=== PATIENT | male | born 1950 | race Two or more races ===

== ENCOUNTER 2016-10-11 06:29 | Inpatient (IN) | payer OTHER ==
[~2016-10-11] VITALS: Ht 188 cm; Wt 92.0 kg
[2016-10-11] MEDS ORDERED: SODIUM CHLORIDE 0.9% 1,000 ML IV ONE (06:52)
[2016-10-11] MEDS ORDERED: FAMOTIDINE 20 MG/2 ML ONE (06:59)
[2016-10-11] MEDS ORDERED: MORPHINE SULFATE 4 MG/ML, 1ML ONE (06:59)
[2016-10-11] MEDS ORDERED: ONDANSETRON 2MG/ML, 2ML ONE ×2 (06:59→16:30)
[2016-10-11] MEDS ORDERED: ONDANSETRON 2MG/ML, 2ML IVPush ONE (07:00)
[2016-10-11] MEDS ORDERED: SODIUM CHLORIDE 0.9% 1,000ML IVBOLUS ONE (07:00)
[2016-10-11] MEDS ORDERED: MORPHINE SULFATE 4 MG/ML, 1ML IVPush PRN (07:00)
[2016-10-11] MEDS ORDERED: FAMOTIDINE 20 MG/2 ML IVP ONE (07:00)
[2016-10-11 07:16] LABS: HEMATOCRIT 45.8 % (39.2-51.8); HEMOGLOBIN 15.4 g/dL (13.7-18.0); WHITE BLOOD COUNT 7.9 x10^3/uL (3.4-10)
[2016-10-11 07:30] LABS: ASPARTATE AMINO TRANSFERASE 132 U/L (15-37); BLOOD UREA NITROGEN 22 mg/dL (7-18)
[2016-10-11 07:35] LABS: IS PT STATUS REG ER OR PRE ER? YES
[2016-10-11] MEDS ORDERED: CEFOTETAN PMX 1GM/50ML 50 ML ONE (08:50)
[2016-10-11] MEDS ORDERED: CEFOTETAN PMX 1GM/50ML 50 ML IV ONE (09:00)
[2016-10-11 15:31] VITALS: BP 129/74
[2016-10-11] MEDS ORDERED: BUPIVACAINE/PF-EPI 0.5% 1:200K ONE (16:09)
[2016-10-11] MEDS ORDERED: MIDAZOLAM 1 MG/ML, 2ML ONE (16:23)
[2016-10-11] MEDS ORDERED: FENTANYL PF 100 MCG/2ML ONE ×3 (16:23→17:47)
[2016-10-11] MEDS ORDERED: ROCURONIUM 10 MG/ML ONE (16:30)
[2016-10-11] MEDS ORDERED: GLYCOPYRROLATE 0.2MG/1ML ONE (16:30)
[2016-10-11] MEDS ORDERED: CEFOTETAN 2 GM ONE (16:30)
[2016-10-11] MEDS ORDERED: NEOSTIGMINE 1 MG/ML, 10ML ONE (16:30)
[2016-10-11] MEDS ORDERED: DEXAMETHASONE 4 MG/ML, 1ML ONE (16:30)
[2016-10-11] MEDS ORDERED: ONDANSETRON 2MG/ML, 2ML IVPush PRN ×2 (16:30→17:00)
[2016-10-11] MEDS ORDERED: PROPOFOL 10 MG/ML, 20ML ONE (16:30)
[2016-10-11] MEDS ORDERED: OXYcodone 5 MG/5 ML ORAL.SOL UDC PO PRN (17:00)
[2016-10-11] MEDS ORDERED: HYDROmorphone 1 MG/ML, 1ML IV PRN (17:00)
[2016-10-11] MEDS ORDERED: ACETAMINOPHEN 325 MG TABLET PO PRN (17:00)
[2016-10-11] MEDS ORDERED: hydrALAzine 20 MG/ML, 1ML IV PRN (17:00)
[2016-10-11] MEDS ORDERED: LABETALOL 5MG/ML, 20ML IV PRN (17:00)
[2016-10-11] MEDS ORDERED: METOPROLOL 1 MG/ML, 5ML IV PRN (17:00)
[2016-10-11] MEDS ORDERED: PROMETHAZINE 25 MG/ML, 1ML IV PRN (17:00)
[2016-10-11] MEDS ORDERED: FENTANYL PF 100 MCG/2ML IV PRN (17:00)
[2016-10-11] MEDS ORDERED: MEPERIDINE/PF 25MG/0.5ML IVPush PRN (17:00)
[2016-10-11] MEDS ORDERED: EPHEDRINE 50 MG/ML, 1ML IVPush PRN (17:00)
[2016-10-11] MEDS ORDERED: ALBUTEROL SULFATE 2.5 MG/3 ML NPPB PRN (17:00)
[2016-10-11] MEDS ORDERED: OXYcodone IR 5MG TABLET PO PRN (17:30)
[2016-10-11] MEDS ORDERED: OXYcodone 5 MG/5 ML ORAL.SOL UDC ONE (17:47)
[2016-10-11] MEDS ORDERED: ACETAMINOPHEN 650 MG/20.3 ML UDC ONE (17:47)
[2016-10-11 18:50] VITALS: BP 152/81
[2016-10-12 01:23] VITALS: BP 128/72
[2016-10-12 05:48] LABS: HEMATOCRIT 42.6 % (39.2-51.8); HEMOGLOBIN 14.2 g/dL (13.7-18.0); WHITE BLOOD COUNT 10.5 x10^3/uL (3.4-10)
[2016-10-12 05:53] LABS: ASPARTATE AMINO TRANSFERASE 117 U/L (15-37); BLOOD UREA NITROGEN 8 mg/dL (7-18)
[2016-10-12 06:45] VITALS: BP 106/56
[2016-10-12] MEDS ORDERED: OXYC5TAB3 PO (09:45)
[2016-10-12] MEDS ORDERED: PNEUMOCOCCAL 23 VACCINE IM-VACC ONE (12:30)
[2016-10-12 12:34] VITALS: BP 118/65
[2016-10-15 09:07] LABS: HEPATITIS B SURFACE AG SCREEN Positive (Negative)
== END 2016-10-12 14:00 | disposition home or self-care (01) | DRG 419 ==
LOC: ED 08:19 → EDIP 08:36 → 3NE 14:55
PROVIDERS: ADMIT Internal Medicine; ATTEND Internal Medicine
PROC: 0FT44ZZ Resection of Gallbladder, Percutaneous Endoscopic Approach (ICD-10-PCS; principal; 2016-10-11 16:00)
DX: K81.9 Cholecystitis, unspecified (principal); I70.0 Atherosclerosis of aorta; R73.9 Hyperglycemia, unspecified; K82.8 Other specified diseases of gallbladder; K30 Functional dyspepsia; Z83.3 Family history of diabetes mellitus; Z82.49 Family history of ischemic heart disease and other diseases of the circulatory system; Z90.89 Acquired absence of other organs; Z80.9 Family history of malignant neoplasm, unspecified; Z90.49 Acquired absence of other specified parts of digestive tract; Z23 Encounter for immunization
CPT/HCPCS: 36415; 71010; 76700; 78227; 80053; 80074; 81003; 83690; 84484; 85025; 87340; 88304; 90732; 93005; 96361; 96374; 96375; J1100; J2250; J2405; J2704; J2710; J3010; J3490; A9537; C9898; J7030; S0028; S0074

== ENCOUNTER 2017-07-07 06:05 | Day surgery (SDC) | payer MEDICARE ==
[~2017-07-07] VITALS: Ht 188 cm; Wt 97.8 kg
[~2017-07-07 06:05] MED LIST: OXYC5TAB3 PO
[2017-07-07] MEDS ORDERED: SODIUM CHLORIDE 0.9% 1,000 ML IV SCH (07:08)
[2017-07-07 07:09] VITALS: BP 136/77
[2017-07-07 07:45] LABS: INTERNATIONAL NORMALIZED RATIO 1.03 (0.93-1.1); PROTHROMBIN TIME 10.7 Seconds (9.6-11.5)
[2017-07-07] MEDS ORDERED: LIDOCAINE-MPF 1%, 5ML ONE (07:48)
[2017-07-07] MEDS ORDERED: FLUMAZENIL 0.1 MG/1 ML, 5ML ONE (08:24)
[2017-07-07] MEDS ORDERED: NALOXONE 1 MG/ML, 2ML ONE (08:24)
[2017-07-07] MEDS ORDERED: MIDAZOLAM 1 MG/ML, 5ML ONE (08:24)
[2017-07-07] MEDS ORDERED: FENTANYL PF 100 MCG/2ML ONE (08:24)
[2017-07-07] MEDS ORDERED: OXYcodone/APAP 5/325MG TABLET ONE (09:21)
[2017-07-07] MEDS ORDERED: OXYcodone/APAP 5/325MG TABLET PO PRN (09:30)
== END 2017-07-07 10:55 | disposition home or self-care (01) ==
LOC: OUT 06:05
PROVIDERS: ATTEND Internal Medicine
DX: K76.89 Other specified diseases of liver (principal)
CPT/HCPCS: 36415; 47000; 76942; 85610; 88307; 88313; 99156; 99157; J2250; J3010; J2310

== ENCOUNTER → 2018-02-10 | Outpatient (CLI) | payer MEDICARE ==
[~2018-02-10] MED LIST changes: +GADOBUTROL 10 MMOL/10 ML PFS ONE
== END | disposition home or self-care (01) ==
LOC: CFH 10:09
PROVIDERS: ATTEND Nurse Practitioner Primary Care
DX: R22.41 Localized swelling, mass and lump, right lower limb (principal)
CPT/HCPCS: 73720; A9585

== ENCOUNTER 2018-02-25 05:58 | Day surgery (SDC) | payer MEDICARE ==
[~2018-02-25 05:58] MED LIST changes: -GADOBUTROL 10 MMOL/10 ML PFS ONE
[2018-02-25] MEDS ORDERED: LIDOCAINE-MPF 1%, 5ML ONE (07:48)
== END 2018-02-25 05:59 | disposition home or self-care (01) ==
LOC: OUT 05:58
PROVIDERS: ATTEND Thoracic Surgery (Cardiothoracic Vascular Surgery)
DX: C49.21 Malignant neoplasm of connective and soft tissue of right lower limb, including hip (principal)
CPT/HCPCS: 10160; 76942; 87070; 87075; 87205; 88112; 88305

== ENCOUNTER 2018-06-12 09:52 | Outpatient (CLI) | payer MEDICARE ==
[2018-06-12] MEDS ORDERED: GADOBUTROL 10 MMOL/10 ML PFS ONE (10:00)
== END 2018-06-12 23:59 | disposition home or self-care (01) ==
LOC: CFH 09:52
PROVIDERS: ATTEND Thoracic Surgery (Cardiothoracic Vascular Surgery)
DX: C49.9 Malignant neoplasm of connective and soft tissue, unspecified (principal)
CPT/HCPCS: 73720; A9585